=== PATIENT | female | born 1990 | race Caucasian/White ===

== ENCOUNTER 2016-07-17 17:41 | Emergency (ER) | payer OTHER ==
[2016-07-17] MEDS ORDERED: MOTRIN 600 MG PO ONE (18:04)
[2016-07-17] MEDS ORDERED: MOTRIN 600 MG ONE (18:12)
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
[2016-07-17 18:41] VITALS: BP 125/77; PULSE 87; O2SAT 99
--- NOTE | 2016-07-18 09:01 | XRAY ---
Indication: Pain following injury. Comparison: None 3 views of the nasal bones demonstrates tongue ornament. No other bony, articular, or soft tissue abnormalities.
== END 2016-07-17 18:42 | disposition home or self-care (01) ==
LOC: ED 17:41
DX: S00.33XA Contusion of nose, initial encounter (principal); W50.0XXA Accidental hit or strike by another person, initial encounter; R04.0 Epistaxis
CPT/HCPCS: 70160; 99283; A9270-GY

== ENCOUNTER 2017-04-06 17:19 | Emergency (ER) | payer OTHER ==
[2017-04-06 18:03] VITALS: BP 135/82; PULSE 89; O2SAT 97
[2017-04-06] MEDS ORDERED: Ciloxan OPHTH OP ONE (18:22)
[2017-04-06] MEDS ORDERED: Acular OPTH SOL OP ONE ×2 (18:22→18:54)
--- NOTE | 2017-04-06 18:27 | ERPHSYRPT ---
- History of Present Illness Time Seen by Provider: 04/06/17 18:13 Source: patient Patient Subjective Stated Complaint: reports eye swelling redness and drainage for 2 days to the right eye reports a gritty feeling in her eye. denies any injury. Triage Nursing Assessment: pt is aox3, pupils perrl, resps easy and non labored , skin is pink warm dry. redness noted to the right eye with clear drainage present. denies any difficulty seeing. Physician History: CC: right eye redness Hx: 26 y/o patient does not wear glasses nor contact lenses. She has red right eye, burning, clear drng for 1-2 days. No specific injury. No FB. No fever. No blurred vision. Healthy. Allergies/Adverse Reactions: escitalopram [From [employer]] Allergy (Verified 01/24/17 00:34) paroxetine Allergy (Verified 01/24/17 00:34) Home Medications: Alprazolam [Xanax 0.5 mg] 1 tab DAILY 01/24/17 [History] Venlafaxine HCl [Effexor] 1 tab DAILY 01/24/17 [History] Hx Tetanus, Diphtheria Vaccination/Date Given: Yes Hx Influenza Vaccination/Date Given: No Hx Pneumococcal Vaccination/Date Given: No Immunizations Up to Date: Yes - Review of Systems Constitutional: No Fever, No Chills Eyes: Discharge (clear), Eye Pain (burning), Eye Redness, Itchy, Tearing, No Vision Changes Ears, Nose, & Throat: No Symptoms - Past Medical History Pertinent Past Medical History: No Psycho-Social History: Anxiety, Depression - Past Surgical History Past Surgical History: Yes Female Surgical History: Tubal Ligation Other Surgical History: uterine ablation - Social History Smoking Status: Current every day smoker Exposure to second hand smoke: Yes Drug Use: none Patient Lives Alone: No - Female History Hx Last Menstrual Period: ablation Hx Now: No - Nursing Vital Signs Nursing Vital Signs: Initial Vital Signs Temperature 98.4 F 04/06/17 17:55 Pulse Rate 89 04/06/17 17:55 Respiratory Rate 18 04/06/17 17:55 Blood Pressure 135/82 04/06/17 17:55 O2 Sat by Pulse Oximetry 97 04/06/17 17:55 - Physical Exam General Appearance: alert Eye Exam: bilateral eye: PERRL, EOMI Ears, Nose, Throat Exam: moist mucous membranes Neck Exam: supple Neurologic: alert, oriented x 3, cooperative Skin Exam: warm, dry, other (no facial cellulitis), No rash SpO2: 97 Oxygen Delivery: Room Air Comments: right eye has conjunctival injection, no apparent FB, clear drng. PERRL. EOMI. No periorbital cellulitis. - Course Nursing assessment & vital signs reviewed: Yes Ordered Tests: Active Orders 24 hr Category Date Time Status Visual Acuity STAT Care 04/06/17 18:22 Active Medication Summary Generic Name Dose Route Start Last Admin Trade Name Alayna PRN Reason Stop Dose Admin Ciprofloxacin 2.5 ml 04/06/17 18:22 Ciloxan Ophth OP 04/06/17 18:23 STAT ONE Ketorolac Tromethamine 5 ml 04/06/17 18:22 Acular Opth Rossy OP 04/06/17 18:23 STAT ONE - Progress Progress Note: 04/06/17 18:25 Likely conjunctivitis. Cipro and ketorolac NSAID started. ADvised eye doctor follow up Saturday if not improving. Counseled pt/family regarding: diagnosis, need for follow-up - Departure Time of Disposition: 18:25 Departure Disposition: Home Clinical Impression: Conjunctivitis Qualifiers: Conjunctivitis type: acute Acute conjunctivitis type: bacterial Laterality: right Qualified Code(s): H10.31 - Unspecified acute conjunctivitis, right eye Condition: Stable Critical Care Time: No Referrals: ANUM TURNER [Primary Care Provider] - Instructions: Conjunctivitis ([place]) Additional Instructions: Use ketoroal eye drop four times a day. Use cipro eye drop four times a day. Follow up with eye doctor Saturday if not improving or any problems or concerns. Good hand washing.
[2017-04-06] MEDS ORDERED: Ciloxan OPHTH ONE (18:54)
== END 2017-04-06 19:17 | disposition home or self-care (01) ==
LOC: ED 17:19
DX: H10.31 Unspecified acute conjunctivitis, right eye (principal); F41.8 Other specified anxiety disorders; Z72.0 Tobacco use
CPT/HCPCS: 99283; A9270-GY

== ENCOUNTER 2020-07-08 11:58 | Emergency (ER) | payer OTHER ==
[2020-07-08] MEDS ORDERED: Sodium Chloride 0.9% 1000 ML 1,000 ML IV STA (12:11)
[2020-07-08] MEDS ORDERED: Hydromorphone 1 mg/ml Injection IV ONE (12:11)
[2020-07-08] MEDS ORDERED: Zofran 4 MG/2 ML VIAL IV ONE (12:11)
[2020-07-08] MEDS ORDERED: PROTONIX 40 MG IV IV ONE ×2 (12:11→12:15)
[2020-07-08] MEDS ORDERED: Hydromorphone 1 mg/ml Injection ONE (12:15)
[2020-07-08] MEDS ORDERED: Sodium Chloride 0.9% 1000 ML 1,000 ML ONE (12:15)
[2020-07-08] MEDS ORDERED: Zofran 4 MG/2 ML VIAL ONE (12:15)
[2020-07-08 12:21] LABS: Absolute Neutrophil Ct (ANC) 9.07 (1.4-6.9); BASOPHIL % 0.3 % (0.0-0.4); Basophil (Absolute #) 0.04 (0-0.4); Eosinophil % 3.1 % (0.00-5.0); Eosinophil (Absolute #) 0.41 (0-0.5); Hematocrit 46.2 % (35-47); Hemoglobin 15.4 gm/dl (12.0-16.0); Lymphocyte (Absolute #) 2.71 (1.0-4.6); Lymphocytes % 20.5 % (24.0-44.0); Mean Cell Volume 93.1 fl (78-100); Mean Corpuscular Hgb Concent. 33.3 g/dl (32-36); Mean Platelet Volume 10.4 fl (7.5-11.0); Monocyte (Absolute #) 0.98 (0.0-1.3); Monocytes % 7.4 % (0.0-12.0); Neutrophil % 68.7 % (36.0-66.0); Platelet Count 342 K/mm3 (150-450); Red Blood Count 4.96 M/mm3 (4.1-5.4); White Blood Count 13.2 K/mm3 (4.0-10.5)
[2020-07-08 12:25] LABS: Appearance SLIGHTLY CLOUDY (CLEAR); Bilirubin NEGATIVE (NEGATIVE); Blood NEGATIVE Ery/ul (0-5); Epithelial Cells RARE /HPF (FEW); Glucose NEGATIVE (NEGATIVE); Ketones NEGATIVE (NEGATIVE); Leukocyte Esterase SMALL (NEGATIVE); Mucus SLIGHT /HPF (NEGATIVE); Nitrite NEGATIVE (NEGATIVE); Protein,Urine Dip NEGATIVE (Negative); Specific Gravity 1.021 (1.005-1.025); Urobilinogen 2 mg/dL (0-1)
[2020-07-08 12:31] LABS: ALBUMIN 4.3 g/dL (3.5-5.0); ALKALINE PHOSPHATASE 67 U/L (38-126); AMYLASE 50 U/L (30-110); ANION GAP 9.7 MEQ/L (5-15); BLOOD UREA NITROGEN 9 mg/dL (7-17); CHLORIDE 105 mmol/L (98-107); Calcium 9.2 mg/dL (8.4-10.2); Carbon Dioxide 27 mmol/L (22-30); Creatinine 1 0.84 mg/dL (0.52-1.04); EST GLOMERULAR FILTRATION RATE > 60.0 ML/MIN; Glucose 138 mg/dL (74-106); LIPASE 65 U/L (23-300); Potassium 3.5 mmol/L (3.5-5.1); SGOT/AST 18 U/L (14-36); SGPT/ALT 20 U/L (0-35); SODIUM 138 mmol/L (137-145); Total Protein 7.2 g/dL (6.3-8.2)
[2020-07-08 13:17] VITALS: O2SAT 97
--- NOTE | 2020-07-08 13:26 | XRAY ---
Indication: Left abdomen/pelvic pain 3 days. Multiple contiguous axial images obtained through the abdomen and pelvis using 80 cc Isovue 370 contrast. Comparison: None Lung bases are clear of infiltrate and effusion. Heart is not enlarged. Noncontrasted stomach and bowel loops appear nonobstructed. Normal appendix. Small cul-de-sac fluid presumed physiologic from rupture/leaking cyst. No walled off fluid collection or free air. 8 mm gallstone near the neck of the gallbladder. Remaining liver, gallbladder, pancreas, spleen, adrenal glands, kidneys, ureters, bladder, uterus, and aorta appear unremarkable. No pathologic retroperitoneal lymphadenopathy. Osseous structures intact. Moderate size fatty umbilical hernia. Impression: 1. Subcentimeter gallstone. 2. Small cul-de-sac free fluid presumed physiologic. 3. Fatty umbilical hernia. 4. Remaining CT abdomen/pelvis with contrast exam is negative.
--- NOTE | 2020-07-08 13:26 | XRAY ---
Indication: Pelvic pain. Comparison: None Portable chest demonstrates normal heart, lungs, and bony thorax with incidental bilateral nipple jewelry.
--- NOTE | 2020-07-08 13:41 | ERPHSYRPT ---
- History of Present Illness Time Seen by Provider: 07/08/20 12:25 Historian: patient Exam Limitations: no limitations Patient Subjective Stated Complaint: Abdominal pain Triage Nursing Assessment: Patient ambulated back to ED and transferred self to bed. Patient A+O x3. Patient's skin pink, warm and dry. Patient complains of lower abdominal pain that started 3 days ago. Patient states the pain is constant aching with intermittent sharp sharp pain. Abdomen soft and round with BS x 4. Patient denies N/V and diarrhea. Physician History: Patient is a 29-year-old white female presents with 3 days of left-sided lower a bdominal pain she denies any nausea vomiting or diarrhea she has had some anorexia he states she may have had some fever 2 days ago but none recently have some slight urinary frequency and urgency. The only surgery she has had is a uterine thermal ablation and a bilateral tubal ligation. Timing/Duration: day(s) (3) Activities at Onset: none Quality: cramping, sharpness, stabbing Abdominal Pain Onset Location: LLQ Pain Radiation: no radiation Severity of Pain-Max: moderate Severity of Pain-Current: moderate Modifying Factors: Improves With: nothing Associated Symptoms: fever/chills, loss of appetite Previous symptoms: no prior history Allergies/Adverse Reactions: escitalopram [From Lexapro] Allergy (Verified 07/08/20 12:04) paroxetine Allergy (Verified 07/08/20 12:04) Home Medications: ALPRAZolam [Xanax 0.5 mg] 1 tab PO Q8HPRN PRN 01/24/17 [History] Lurasidone HCl [Latuda] 1 tab PO DAILY 07/08/20 [History] Sertraline HCl [Zoloft] 200 mg PO DAILY 07/08/20 [History] Hx Tetanus, Diphtheria Vaccination/Date Given: Yes Hx Influenza Vaccination/Date Given: No Hx Pneumococcal Vaccination/Date Given: No Immunizations Up to Date: Yes Travel Risk - International Travel Have you traveled outside of the country in past 3 weeks: No - Coronavirus Screening Are you exhibiting any of the following symptoms?: No Close contact with a COVID-19 positive Pt in past 14-21 Days: No - Vaccine Status Have you recieved a Covid-19 vaccination: No - Review of Systems Constitutional: No Fever, No Chills Eyes: No Symptoms Ears, Nose, & Throat: No Symptoms Respiratory: No Cough, No Dyspnea Cardiac: No Chest Pain, No Edema, No Syncope Abdominal/Gastrointestinal: Abdominal Pain, No Nausea, No Vomiting, No Diarrhea Genitourinary Symptoms: Dysuria, Frequency, Urgency Musculoskeletal: No Back Pain, No Neck Pain Skin: No Rash Neurological: No Dizziness, No Focal Weakness, No Sensory Changes Psychological: No Symptoms Endocrine: No Symptoms All Other Systems: Reviewed and Negative - Past Medical History Pertinent Past Medical History: No Neurological History: No Pertinent History ENT History: No Pertinent History Cardiac History: No Pertinent History Respiratory History: No Pertinent History Endocrine Medical History: No Pertinent History Musculoskeletal History: No Pertinent History GI Medical History: No Pertinent History History: No Pertinent History Psycho-Social History: Anxiety, Depression Female Reproductive Disorders: No Pertinent History - Past Surgical History Past Surgical History: Yes Female Surgical History: Tubal Ligation Other Surgical History: uterine ablation - Social History Smoking Status: Current every day smoker How long have you smoked: years Exposure to second hand smoke: Yes Drug Use: none Patient Lives Alone: No - Female History Hx Last Menstrual Period: last week Hx Now: No - Nursing Vital Signs Nursing Vital Signs: Initial Vital Signs Temperature 97.5 F 07/08/20 12:09 Pulse Rate 99 H 07/08/20 12:09 Respiratory Rate 18 07/08/20 12:09 Blood Pressure 113/85 07/08/20 12:09 O2 Sat by Pulse Oximetry 99 07/08/20 12:09 Pain Scale Pain Intensity 5 - Physical Exam General Appearance: no apparent distress, alert Eye Exam: PERRL/EOMI, eyes nml inspection Ears, Nose, Throat Exam: normal ENT inspection, pharynx normal, moist mucous membranes Neck Exam: normal inspection, non-tender, supple, full range of motion Respiratory Exam: normal breath sounds, lungs clear, No respiratory distress Cardiovascular Exam: regular rate/rhythm, normal heart sounds Gastrointestinal/Abdomen Exam: soft, tenderness, guarding, No mass, No rebound Pelvic Exam: deferred Back Exam: normal inspection, normal range of motion, No CVA tenderness, No vertebral tenderness Extremity Exam: normal inspection, normal range of motion, pelvis stable Neurologic Exam: alert, oriented x 3, cooperative, normal mood/affect, nml cerebellar function, sensation nml, No motor deficits Skin Exam: normal color, warm, dry SpO2: 97 - Course Nursing assessment & vital signs reviewed: Yes - CT Exams Abdomen/Pelvis CT Interpretation: Other (CT showed a subcentimeter gallstone some fluid in the cul-de-sac a fatty umbilical hernia and the remaining exam was negative) Ordered Tests: Active Orders 24 hr Category Date Time Status IV Insertion STAT Care 07/08/20 12:11 Active ABDOMEN AND PELVIS W CONTRAST [CT] Stat Exams 07/08/20 12:12 Completed CHEST 1 VIEW (PORTABLE) Stat Exams 07/08/20 12:12 Completed AMYLASE Stat Lab 07/08/20 12:10 Completed CBC W DIFF Stat Lab 07/08/20 12:10 Completed CMP Stat Lab 07/08/20 12:10 Completed LIPASE Stat Lab 07/08/20 12:10 Completed Lactic Acid Stat Lab 07/08/20 12:18 Completed UA W/RFX UR CULTURE Stat Lab 07/08/20 12:14 Completed Medication Summary Discontinued Medications Generic Name Dose Route Start Last Admin Trade Name Freq PRN Reason Stop Dose Admin Hydromorphone HCl 0.5 mg 07/08/20 12:11 07/08/20 12:19 Hydromorphone 1 Mg/Ml Injection IV 07/08/20 12:12 0.5 mg STAT ONE Administration Hydromorphone HCl Confirm 07/08/20 12:15 Hydromorphone 1 Mg/Ml Injection Administered 07/08/20 12:16 Dose 1 mg .ROUTE .STK-MED ONE Sodium Chloride 1,000 mls @ 999 mls/hr 07/08/20 12:11 07/08/20 12:19 Sodium Chloride 0.9% 1000 Ml IV 07/08/20 13:11 999 mls/hr .Q1H1M STA Administration Sodium Chloride Confirm 07/08/20 12:15 Sodium Chloride 0.9% 1000 Ml Administered 07/08/20 12:16 Dose 1,000 mls @ ud .ROUTE .STK-MED ONE Ondansetron HCl 4 mg 07/08/20 12:11 07/08/20 12:19 Zofran 4 Mg/2 Ml Vial IV 07/08/20 12:12 4 mg STAT ONE Administration Ondansetron HCl Confirm 07/08/20 12:15 Zofran 4 Mg/2 Ml Vial Administered 07/08/20 12:16 Dose 4 mg .ROUTE .STK-MED ONE Pantoprazole Sodium 40 mg 07/08/20 12:11 07/08/20 12:19 Protonix 40 Mg Iv IV 07/08/20 12:12 40 mg STAT ONE Administration Pantoprazole Sodium Confirm 07/08/20 12:15 Protonix 40 Mg Iv Administered 07/08/20 12:16 Dose 40 mg IV .STK-MED ONE Lab/Rad Data: Laboratory Result Diagrams 07/08/20 12:10 07/08/20 12:10 Laboratory Results 07/08/20 07/08/20 07/08/20 Range/Units 12:18 12:14 12:10 WBC (4.0-10.5) K/mm3 RBC (4.1-5.4) M/mm3 Hgb (12.0-16.0) gm/dl Hct (35-47) % MCV (78-100) fl MCH (26-32) pg MCHC (32-36) g/dl RDW (11.5-14.0) % Plt Count (150-450) K/mm3 MPV (7.5-11.0) fl Gran % (36.0-66.0) % Eos # (Auto) (0-0.5) Absolute Lymphs (auto) (1.0-4.6) Absolute Monos (auto) (0.0-1.3) Lymphocytes % (24.0-44.0) % Monocytes % (0.0-12.0) % Eosinophils % (0.00-5.0) % Basophils % (0.0-0.4) % Absolute Granulocytes (1.4-6.9) Basophils # (0-0.4) Sodium 138 (137-145) mmol/L Potassium 3.5 (3.5-5.1) mmol/L Chloride 105 (98-107) mmol/L Carbon Dioxide 27 (22-30) mmol/L Anion Gap 9.7 (5-15) MEQ/L BUN 9 (7-17) mg/dL Creatinine 0.84 (0.52-1.04) mg/dL Estimated GFR > 60.0 ML/MIN Glucose 138 H (74-106) mg/dL Lactic Acid 1.3 (0.4-2.0) Calcium 9.2 (8.4-10.2) mg/dL Total Bilirubin 0.50 (0.2-1.3) mg/dL AST 18 (14-36) U/L ALT 20 (0-35) U/L Alkaline Phosphatase 67 (38-126) U/L Serum Total Protein 7.2 (6.3-8.2) g/dL Albumin 4.3 (3.5-5.0) g/dL Amylase 50 (30-110) U/L Lipase 65 (23-300) U/L Urine Color YELLOW (YELLOW) Urine Appearance SLIGHTLY CLOUDY (CLEAR) Urine pH 6.0 (5-6) Ur Specific [place] 1.021 (1.005-1.025) Urine Protein NEGATIVE (Negative) Urine Ketones NEGATIVE (NEGATIVE) Urine Blood NEGATIVE (0-5) Onel/ul Urine Nitrite NEGATIVE (NEGATIVE) Urine Bilirubin NEGATIVE (NEGATIVE) Urine Urobilinogen 2 (0-1) mg/dL Ur Leukocyte Esterase SMALL (NEGATIVE) Urine WBC (Auto) 3-5 (0-5) /HPF Urine RBC (Auto) NONE (0-2) /HPF U Epithel Cells (Auto) RARE (FEW) /HPF Urine Bacteria (Auto) NONE (NEGATIVE) /HPF Urine Mucus (Auto) SLIGHT (NEGATIVE) /HPF Urine Culture Reflexed NO (NO) Urine Glucose NEGATIVE (NEGATIVE) mg/dL 07/08/20 Range/Units 12:10 WBC 13.2 H (4.0-10.5) K/mm3 RBC 4.96 (4.1-5.4) M/mm3 Hgb 15.4 (12.0-16.0) gm/dl Hct 46.2 (35-47) % MCV 93.1 (78-100) fl MCH 31.0 (26-32) pg MCHC 33.3 (32-36) g/dl RDW 13.0 (11.5-14.0) % Plt Count 342 (150-450) K/mm3 MPV 10.4 (7.5-11.0) fl Gran % 68.7 H (36.0-66.0) % Eos # (Auto) 0.41 (0-0.5) Absolute Lymphs (auto) 2.71 (1.0-4.6) Absolute Monos (auto) 0.98 (0.0-1.3) Lymphocytes % 20.5 L (24.0-44.0) % Monocytes % 7.4 (0.0-12.0) % Eosinophils % 3.1 (0.00-5.0) % Basophils % 0.3 (0.0-0.4) % Absolute Granulocytes 9.07 H (1.4-6.9) Basophils # 0.04 (0-0.4) Sodium (137-145) mmol/L Potassium (3.5-5.1) mmol/L Chloride (98-107) mmol/L Carbon Dioxide (22-30) mmol/L Anion Gap (5-15) MEQ/L BUN (7-17) mg/dL Creatinine (0.52-1.04) mg/dL Estimated GFR ML/MIN Glucose (74-106) mg/dL Lactic Acid (0.4-2.0) Calcium (8.4-10.2) mg/dL Total Bilirubin (0.2-1.3) mg/dL AST (14-36) U/L ALT (0-35) U/L Alkaline Phosphatase (38-126) U/L Serum Total Protein (6.3-8.2) g/dL Albumin (3.5-5.0) g/dL Amylase (30-110) U/L Lipase (23-300) U/L Urine Color (YELLOW) Urine Appearance (CLEAR) Urine pH (5-6) Ur Specific [place] (1.005-1.025) Urine Protein (Negative) Urine Ketones (NEGATIVE) Urine Blood (0-5) Onel/ul Urine Nitrite (NEGATIVE) Urine Bilirubin (NEGATIVE) Urine Urobilinogen (0-1) mg/dL Ur Leukocyte Esterase (NEGATIVE) Urine WBC (Auto) (0-5) /HPF Urine RBC (Auto) (0-2) /HPF U Epithel Cells (Auto) (FEW) /HPF Urine Bacteria (Auto) (NEGATIVE) /HPF Urine Mucus (Auto) (NEGATIVE) /HPF Urine Culture Reflexed (NO) Urine Glucose (NEGATIVE) mg/dL - Progress Progress: improved - Departure Departure Disposition: Home Clinical Impression: Abdominal pain Condition: Stable Critical Care Time: No Referrals: ANUM TURNER [Primary Care Provider] - Instructions: Acute Abdomen (Belly Pain) Prescriptions: Oxycodone HCl/Acetaminophen [Percocet 5-325 mg Tablet] 1 each PO Q6H PRN PRN 3 Days #12 tablet MDD 4 PRN Reason: Pain Smz/Tmp Ds Tablet [Bactrim Ds Tablet] 1 udtab PO BID #14 tablet
[2020-07-08 13:42] VITALS: BP 113/81; PULSE 76
== END 2020-07-08 13:50 | disposition home or self-care (01) ==
LOC: ED 11:58
DX: R10.9 Unspecified abdominal pain (principal)
CPT/HCPCS: 36000; 36415; 71045; 74177; 80053; 81001; 82150; 83605; 83690; 85025; 96374; 96375; 99284; J1170; J2405

== ENCOUNTER 2021-07-24 14:20 | Emergency (ER) | payer MEDICAID, OTHER ==
[2021-07-24] MEDS ORDERED: Zofran 4 MG/2 ML VIAL IV ONE (14:42)
[2021-07-24] MEDS ORDERED: Sodium Chloride 0.9% 1000 ML 1,000 ML IV STA (14:42)
[2021-07-24] MEDS ORDERED: Hydromorphone 1 mg/ml Injection IV ONE (14:42)
[2021-07-24] MEDS ORDERED: Zofran 4 MG/2 ML VIAL ONE (14:55)
[2021-07-24] MEDS ORDERED: Hydromorphone 1 mg/ml Injection ONE (14:55)
[2021-07-24] MEDS ORDERED: Sodium Chloride 0.9% 1000 ML 1,000 ML ONE (14:55)
[2021-07-24 15:07] LABS: Absolute Neutrophil Ct (ANC) 9.14 (1.4-6.9); Basophil (Absolute #) 0.03 (0-0.4); Eosinophil % 1.4 % (0.00-5.0); Eosinophil (Absolute #) 0.18 (0-0.5); Hematocrit 41.8 % (35-47); Lymphocyte (Absolute #) 2.66 (1.0-4.6); Lymphocytes % 20.3 % (24.0-44.0); Mean Cell Volume 92.7 fl (78-100); Mean Corpuscular Hgb Concent. 33.5 g/dl (32-36); Monocyte (Absolute #) 1.11 (0.0-1.3); Monocytes % 8.5 % (0.0-12.0); Neutrophil % 69.6 % (36.0-66.0); Platelet Count 295 K/mm3 (150-450); Red Blood Count 4.51 M/mm3 (4.1-5.4); Red Cell Distribution Width 12.8 % (11.5-14.0); White Blood Count 13.1 K/mm3 (4.0-10.5)
[2021-07-24 15:17] LABS: ALBUMIN 4.2 g/dL (3.5-5.0); ALKALINE PHOSPHATASE 55 U/L (38-126); AMYLASE 51 U/L (30-110); ANION GAP 11.4 MEQ/L (5-15); BLOOD UREA NITROGEN 12 mg/dL (7-17); CHLORIDE 107 mmol/L (98-107); Calcium 9.6 mg/dL (8.4-10.2); Carbon Dioxide 26 mmol/L (22-30); Creatinine 1 0.81 mg/dL (0.52-1.04); EST GLOMERULAR FILTRATION RATE > 60.0 ML/MIN; Glucose 97 mg/dL (74-106); LIPASE 56 U/L (23-300); SGOT/AST 17 U/L (14-36); SGPT/ALT 16 U/L (0-35); SODIUM 140 mmol/L (137-145); Total Protein 6.8 g/dL (6.3-8.2)
[2021-07-24 15:27] LABS: Appearance CLOUDY (CLEAR); Bilirubin NEGATIVE (NEGATIVE); Epithelial Cells RARE /HPF (FEW); Glucose NEGATIVE (NEGATIVE); Ketones NEGATIVE (NEGATIVE); Protein,Urine Dip NEGATIVE (Negative); RBC NEGATIVE Ery/ul (0-5); Specific Gravity 1.025 (1.005-1.025); Urobilinogen 0.2 mg/dL (0-1)
[2021-07-24 15:28] LABS: Nitrite NEGATIVE (NEGATIVE)
[2021-07-24 15:29] LABS: Urine Cultured Indicated? NO; WBC NONE SEEN /HPF (0-5)
[2021-07-24 16:04] LABS: Dipstick done @ ? MAIN LAB
--- NOTE | 2021-07-24 17:03 | XRAY ---
Indication: Right flank/back pain. Multiple contiguous axial images obtained through the abdomen and pelvis without contrast. Comparison: July 08, 2020. Lung bases demonstrate minimal dependent atelectasis. Heart not enlarged. Noncontrasted stomach and bowel loops appear nonobstructed with normal appendix. Stable 8-9 mm gallstone. Tiny cul-de-sac fluid presumed physiologic from rupture/leaking cyst. No walled off fluid collection or free air. Remaining liver, gallbladder, pancreas, spleen, adrenal glands, kidneys, ureters, bladder, uterus, and aorta are unremarkable. Osseous structures intact. Stable moderate-sized fatty umbilical hernia. Impression: 1. Again subcentimeter gallstone, tiny cul-de-sac physiologic fluid, and fatty umbilical hernia. 2. Remaining CT abdomen/pelvis without contrast exam is again negative.
--- NOTE | 2021-07-24 17:23 | ERPHSYRPT ---
- History of Present Illness Time Seen by Provider: 07/24/21 14:30 Historian: patient Exam Limitations: no limitations Patient Subjective Stated Complaint: BACK PAIN Triage Nursing Assessment: PT REPORTS ONSET OF BACK PAIN ON 07/23/21 WHICH WAS MANAGEABLE - PT REPORTS BACK PAIN INCREASING TODAY AND REPORTS NAUSEA AND SWEATING/CHILLS. Physician History: Patient is a 30-year-old white female who presents with a complaint of back pain and right upper quadrant pain since yesterday she has been nauseated but no vomiting she has no history of renal stones she does have a history of gallstones she has had no fever or chills but has had some sweating episodes with the episodes of nausea. Timing/Duration: yesterday Activities at Onset: none Quality: cramping, stabbing, throbbing Pain Radiation: RUQ Severity of Pain-Max: moderate Severity of Pain-Current: moderate Modifying Factors: Improves With: nothing Associated Symptoms: nausea Previous symptoms: same symptoms as today Allergies/Adverse Reactions: escitalopram [From Lexapro] Allergy (Verified 07/24/21 14:51) paroxetine Allergy (Verified 07/24/21 14:51) Hx Tetanus, Diphtheria Vaccination/Date Given: Yes Hx Influenza Vaccination/Date Given: No Hx Pneumococcal Vaccination/Date Given: No Immunizations Up to Date: Yes Travel Risk - International Travel Have you traveled outside of the country in past 3 weeks: No - Coronavirus Screening Are you exhibiting any of the following symptoms?: No Close contact with a COVID-19 positive Pt in past 14-21 Days: No - Vaccine Status Have you recieved a Covid-19 vaccination: No - Review of Systems Constitutional: No Fever, No Chills Eyes: No Symptoms Ears, Nose, & Throat: No Symptoms Respiratory: No Cough, No Dyspnea Cardiac: No Chest Pain, No Edema, No Syncope Abdominal/Gastrointestinal: No Abdominal Pain, No Nausea, No Vomiting, No Diarrhea Genitourinary Symptoms: No Dysuria Musculoskeletal: No Back Pain, No Neck Pain Skin: No Rash Neurological: No Dizziness, No Focal Weakness, No Sensory Changes Psychological: No Symptoms Endocrine: No Symptoms All Other Systems: Reviewed and Negative - Past Medical History Pertinent Past Medical History: No Neurological History: No Pertinent History ENT History: No Pertinent History Cardiac History: No Pertinent History Respiratory History: No Pertinent History Endocrine Medical History: No Pertinent History Musculoskeletal History: No Pertinent History GI Medical History: No Pertinent History History: No Pertinent History Psycho-Social History: Anxiety, Depression Female Reproductive Disorders: No Pertinent History Other Medical History: 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 6 MONTHS AGO - Past Surgical History Past Surgical History: Yes Female Surgical History: Tubal Ligation Other Surgical History: uterine ablation - Social History Smoking Status: Current every day smoker How long have you smoked: years Exposure to second hand smoke: Yes Drug Use: none Patient Lives Alone: No - Female History Hx Now: No - Nursing Vital Signs Nursing Vital Signs: Initial Vital Signs Temperature 98.5 F 07/24/21 14:21 Pulse Rate 88 07/24/21 14:21 Respiratory Rate 20 07/24/21 14:21 Blood Pressure 128/67 07/24/21 14:21 Pain Scale Pain Intensity [Posterior Back 10 ] Pain Intensity 3 - Physical Exam General Appearance: no apparent distress, alert Eye Exam: PERRL/EOMI, eyes nml inspection Ears, Nose, Throat Exam: normal ENT inspection, pharynx normal, moist mucous membranes Neck Exam: normal inspection, non-tender, supple, full range of motion Respiratory Exam: normal breath sounds, lungs clear, No respiratory distress Cardiovascular Exam: regular rate/rhythm, normal heart sounds Gastrointestinal/Abdomen Exam: normal bowel sounds, tenderness (Right upper quadrant), No mass Pelvic Exam: not done Rectal Exam: deferred Back Exam: normal inspection, normal range of motion, No CVA tenderness, No vertebral tenderness Extremity Exam: normal inspection, normal range of motion, pelvis stable Neurologic Exam: alert, oriented x 3, cooperative, normal mood/affect, nml cerebellar function, sensation nml, No motor deficits Skin Exam: normal color, warm, dry SpO2 Interpretation: normal SpO2: 97 O2 Delivery: Room Air - Course Nursing assessment & vital signs reviewed: Yes - CT Exams Abdomen/Pelvis CT Interpretation: Tele-radiologist Report Ordered Tests: Active Orders 24 hr Category Date Time Status IV Insertion STAT Care 07/24/21 14:42 Active ABDOMEN AND PELVIS W/0 CONTRAS [CT] Stat Exams 07/24/21 14:43 Completed AMYLASE Stat Lab 07/24/21 15:00 Completed CBC W DIFF Stat Lab 07/24/21 15:00 Completed CMP Stat Lab 07/24/21 15:00 Completed HCG,QUALITATIVE URINE Stat Lab 07/24/21 14:54 Completed LIPASE Stat Lab 07/24/21 15:00 Completed Lactic Acid Stat Lab 07/24/21 15:00 Completed UA W/RFX CULTURE Stat Lab 07/24/21 14:39 Completed Medication Summary Discontinued Medications Generic Name Dose Route Start Last Admin Trade Name Freq PRN Reason Stop Dose Admin Hydromorphone HCl 1 mg 07/24/21 14:42 07/24/21 14:57 Hydromorphone 1 Mg/1ml Inj 1 Mg/Ml Syringe IV 07/24/21 14:43 1 mg STAT ONE Administration Hydromorphone HCl Confirm 07/24/21 14:55 Hydromorphone 1 Mg/1ml Inj 1 Mg/Ml Syringe Administered 07/24/21 14:56 Dose 1 mg .ROUTE .STK-MED ONE Sodium Chloride 1,000 mls @ 999 mls/hr 07/24/21 14:42 07/24/21 15:58 Sodium Chloride 0.9% 1000 Ml IV 07/24/21 15:42 Infused .Q1H1M STA Infusion Sodium Chloride Confirm 07/24/21 14:55 Sodium Chloride 0.9% 1000 Ml Administered 07/24/21 14:56 Dose 1,000 mls @ ud .ROUTE .STK-MED ONE Ondansetron HCl 4 mg 07/24/21 14:42 07/24/21 14:56 Ondansetron Hcl 4 Mg/2 Ml Vial IV 07/24/21 14:43 4 mg STAT ONE Administration Ondansetron HCl Confirm 07/24/21 14:55 Ondansetron Hcl 4 Mg/2 Ml Vial Administered 07/24/21 14:56 Dose 4 mg .ROUTE .STK-MED ONE Lab/Rad Data: Laboratory Result Diagrams 07/24/21 15:00 07/24/21 15:00 Laboratory Results 07/24/21 07/24/21 07/24/21 Range/Units 15:00 15:00 15:00 WBC 13.1 H (4.0-10.5) K/mm3 RBC 4.51 (4.1-5.4) M/mm3 Hgb 14.0 (12.0-16.0) gm/dl Hct 41.8 (35-47) % MCV 92.7 (78-100) fl MCH 31.0 (26-32) pg MCHC 33.5 (32-36) g/dl RDW 12.8 (11.5-14.0) % Plt Count 295 (150-450) K/mm3 MPV 10.0 (7.5-11.0) fl Gran % 69.6 H (36.0-66.0) % Eos # (Auto) 0.18 (0-0.5) Absolute Lymphs (auto) 2.66 (1.0-4.6) Absolute Monos (auto) 1.11 (0.0-1.3) Lymphocytes % 20.3 L (24.0-44.0) % Monocytes % 8.5 (0.0-12.0) % Eosinophils % 1.4 (0.00-5.0) % Basophils % 0.2 (0.0-0.4) % Absolute Granulocytes 9.14 H (1.4-6.9) Basophils # 0.03 (0-0.4) Sodium 140 (137-145) mmol/L Potassium 4.0 (3.5-5.1) mmol/L Chloride 107 (98-107) mmol/L Carbon Dioxide 26 (22-30) mmol/L Anion Gap 11.4 (5-15) MEQ/L BUN 12 (7-17) mg/dL Creatinine 0.81 (0.52-1.04) mg/dL Estimated GFR > 60.0 ML/MIN Glucose 97 (74-106) mg/dL Lactic Acid 0.5 (0.4-2.0) Calcium 9.6 (8.4-10.2) mg/dL Total Bilirubin 0.50 (0.2-1.3) mg/dL AST 17 (14-36) U/L ALT 16 (0-35) U/L Alkaline Phosphatase 55 (38-126) U/L Serum Total Protein 6.8 (6.3-8.2) g/dL Albumin 4.2 (3.5-5.0) g/dL Amylase 51 (30-110) U/L Lipase 56 (23-300) U/L Urinalys Dipstick Clnc Urine Color (YELLOW) Urine Appearance (CLEAR) Urine pH (5-6) Ur Specific [place] (1.005-1.025) POC Urine Protein Conf (Negative) Urine Ketones (NEGATIVE) Urine Nitrite (NEGATIVE) Urine Bilirubin (NEGATIVE) Urine Urobilinogen (0-1) mg/dL Urine Leukocytes (NEGATIVE) Urine WBC (Auto) (0-5) /HPF Urine RBC (Auto) (0-2) /HPF U Epithel Cells (Auto) (FEW) /HPF Urine Bacteria (Auto) (NEGATIVE) /HPF Urine RBC (0-5) Onel/ul Ur Culture Indicated? Urine Glucose (NEGATIVE) mg/dL Urine HCG, Qual (Negative) 07/24/21 07/24/21 Range/Units 14:54 14:39 WBC (4.0-10.5) K/mm3 RBC (4.1-5.4) M/mm3 Hgb (12.0-16.0) gm/dl Hct (35-47) % MCV (78-100) fl MCH (26-32) pg MCHC (32-36) g/dl RDW (11.5-14.0) % Plt Count (150-450) K/mm3 MPV (7.5-11.0) fl Gran % (36.0-66.0) % Eos # (Auto) (0-0.5) Absolute Lymphs (auto) (1.0-4.6) Absolute Monos (auto) (0.0-1.3) Lymphocytes % (24.0-44.0) % Monocytes % (0.0-12.0) % Eosinophils % (0.00-5.0) % Basophils % (0.0-0.4) % Absolute Granulocytes (1.4-6.9) Basophils # (0-0.4) Sodium (137-145) mmol/L Potassium (3.5-5.1) mmol/L Chloride (98-107) mmol/L Carbon Dioxide (22-30) mmol/L Anion Gap (5-15) MEQ/L BUN (7-17) mg/dL Creatinine (0.52-1.04) mg/dL Estimated GFR ML/MIN Glucose (74-106) mg/dL Lactic Acid (0.4-2.0) Calcium (8.4-10.2) mg/dL Total Bilirubin (0.2-1.3) mg/dL AST (14-36) U/L ALT (0-35) U/L Alkaline Phosphatase (38-126) U/L Serum Total Protein (6.3-8.2) g/dL Albumin (3.5-5.0) g/dL Amylase (30-110) U/L Lipase (23-300) U/L Urinalys Dipstick Clnc MAIN LAB Urine Color YELLOW (YELLOW) Urine Appearance CLOUDY (CLEAR) Urine pH 8.0 (5-6) Ur Specific [place] 1.025 (1.005-1.025) POC Urine Protein Conf NEGATIVE (Negative) Urine Ketones NEGATIVE (NEGATIVE) Urine Nitrite NEGATIVE (NEGATIVE) Urine Bilirubin NEGATIVE (NEGATIVE) Urine Urobilinogen 0.2 (0-1) mg/dL Urine Leukocytes NEGATIVE (NEGATIVE) Urine WBC (Auto) NONE SEEN (0-5) /HPF Urine RBC (Auto) NONE (0-2) /HPF U Epithel Cells (Auto) RARE (FEW) /HPF Urine Bacteria (Auto) NONE (NEGATIVE) /HPF Urine RBC NEGATIVE (0-5) Onel/ul Ur Culture Indicated? NO Urine Glucose NEGATIVE (NEGATIVE) mg/dL Urine HCG, Qual NEGATIVE (Negative) - Progress Progress: improved - Departure Departure Disposition: Home Clinical Impression: Biliary colic Condition: Stable Critical Care Time: No Referrals: ANUM TURNER NP [Primary Care Provider] - Follow up/PCP as directed Instructions: Gallstones (DC) Prescriptions: Ondansetron ODT 4 MG [Zofran Odt 4 mg] 4 mg PO Q6H PRN PRN #10 tablet PRN Reason: Vomiting Hydrocodone/Acetaminophen [Hydrocodone-Acetamin 5-325 mg] 1 tab PO Q6H PRN 3 Days #12 tablet MDD 4 PRN Reason: Pain PANTOPRAZOLE 40 mg Tablet [Protonix 40MG Tablet] 40 mg PO QAM 30 Days #30 tab
[2021-07-24 17:44] VITALS: BP 136/85; PULSE 84; O2SAT 98
== END 2021-07-24 17:52 | disposition home or self-care (01) ==
LOC: ED 14:20
DX: K80.50 Calculus of bile duct without cholangitis or cholecystitis without obstruction (principal); M54.9 Dorsalgia, unspecified; R10.11 Right upper quadrant pain; R11.0 Nausea; Z72.0 Tobacco use; Z79.891 Long term (current) use of opiate analgesic
CPT/HCPCS: 36000; 36415; 74176; 80053; 81015; 82150; 83605; 83690; 84703; 85025; 96360; 96374; 96375; 99284; J1170; J2405